=== PATIENT | female | born 1995 | race American Indian/Alaskan Native ===

== ENCOUNTER 2018-12-25 22:51 | Emergency (ER) | payer OTHER ==
[~2018-12-25] VITALS: Ht 172.7 cm; Wt 68.0 kg
[2018-12-26 00:06] LABS: BASOPHILS ABSOLUTE AUTO 0.06 K/mm3 (0.00-0.23); BASOPHILS PERCENT AUTO 1 % (0-2); EOSINOPHILS ABSOLUTE AUTO 0.04 K/mm3 (0.00-0.68); EOSINOPHILS PERCENT AUTO 0 % (0-6); Hematocrit 38.6 % (33.0-51.0); Hemoglobin 12.9 g/dL (11.5-16.0); IMMATURE GRAN ABSOLUTE AUTO 0.02 K/mm3 (0.00-0.10); IMMATURE GRAN PERCENT AUTO 0 % (0-1); LYMPHOCYTES ABSOLUTE AUTO 1.51 K/mm3 (0.84-5.20); LYMPHOCYTES PERCENT AUTO 16 % (21-46); MONOCYTES ABSOLUTE AUTO 0.57 K/mm3 (0.16-1.47); MONOCYTES PERCENT AUTO 6 % (4-13); Mean Corpuscular HGB 31.2 pg (26.0-34.0); Mean Corpuscular HGB Conc 33.4 g/dL (31.5-36.5); Mean Corpuscular Volume 93 fL (80-100); Mean Platelet Volume 9.7 fL (9.1-12.4); NEUTROPHILS ABSOLUTE AUTO 7.33 K/mm3 (1.96-9.15); NEUTROPHILS PERCENT AUTO 77 % (41-73); Platelet Count 234 K/mm3 (150-400); RDW Coefficient Variation 12.6 % (11.7-14.2); RDW Standard Deviation 43.2 fL (35.1-46.3); Red Blood Cell Count 4.14 M/mm3 (3.80-5.20); White Blood Cell Count 9.53 K/mm3 (4.00-11.30)
[2018-12-26 00:24] LABS: Alanine Aminotransfer (ALT/SGP 23 U/L (12-78); Albumin, Blood 4.5 g/dL (3.4-5.0); Albumin/Globulin Ratio 1.3 (0.8-1.8); Alk Phos 66 U/L (50-136); Anion Gap 8 mmol/L (6-16); Aspartate Aminotrans (AST/SGOT 18 U/L (12-37); Bilirubin, Total 0.6 mg/dL (0.1-1.0); Blood Urea Nitrogen 13 mg/dL (8-24); Bun/Creatinine Ratio 14.9 (12.0-20.0); CO2, Blood 24 mmol/L (21-32); Calcium, Blood 9.5 mg/dL (8.5-10.1); Chloride, Blood 105 mmol/L (98-108); Creatinine, Blood 0.87 mg/dL (0.40-1.00); Globulin, Blood 3.5 g/dL (2.2-4.0); Glomerular Filtration Rate >60 (60-); Glucose, Blood 83 mg/dL (70-99); Potassium, Blood 3.8 mmol/L (3.5-5.5); Sodium, Blood 137 mmol/L (136-145)
[2018-12-26 00:26] LABS: Source, Urine Clean Catch
[2018-12-26 00:30] LABS: Bilirubin, Urine Neg (Neg); Blood, Urine Neg (Neg); Glucose Qualitative, Urine Neg (Neg); Ketones, Urine 3+ (Neg); Leukocyte Esterase, Urine Neg (Neg); Nitrite, Urine Neg (Neg); Protein, Urine Neg (Neg); Urobilinogen, Urine NORM (Normal)
[2018-12-26 00:33] LABS: Appearance, Urine Clear (Clear); Color, Urine Yellow (P-Yellow)
[2018-12-26] MEDS ORDERED: ONDA4ODT MM (00:43)
== END 2018-12-26 01:03 | disposition home or self-care (01) ==
LOC: ER 22:51
PROVIDERS: Emergency Medicine
DX: K59.00 Constipation, unspecified (principal); R11.2 Nausea with vomiting, unspecified; F17.200 Nicotine dependence, unspecified, uncomplicated
CPT/HCPCS: 80053; 81003; 81025; 83690; 84703; 85025; 96361; 96374; 99283-25; A9270-GY; J2405; J7030

== ENCOUNTER 2019-12-06 20:19 | Emergency (ER) | payer OTHER ==
[~2019-12-06] VITALS: Ht 170.2 cm; Wt 65.8 kg
[~2019-12-06 20:19] MED LIST: ONDA4ODT MM
[2019-12-06] MEDS ORDERED: TRIAMCINOLONE (20:52)
[2019-12-06] MEDS ORDERED: PRENATAL TABLE1 EAC2 PO (20:52)
[2019-12-06] MEDS ORDERED: Mupirocin22 GM (20:52)
[2019-12-06 21:19] LABS: Source, Urine Clean Catch
[2019-12-06 21:27] LABS: Bilirubin, Urine Neg (Neg); Blood, Urine 5+ (Neg); Glucose Qualitative, Urine Neg (Neg); Ketones, Urine Neg (Neg); Leukocyte Esterase, Urine 2+ (Neg); Nitrite, Urine Neg (Neg); Protein, Urine Neg (Neg); Specific Gravity, Urine 1.005 (1.003-1.022); Urobilinogen, Urine NORM (Normal)
[2019-12-06 21:33] LABS: Appearance, Urine Clear (Clear); Color, Urine Yellow (P-Yellow)
[2019-12-06 21:36] LABS: Bacteria Few /hpf; Squamous Epithelial Cells Few /hpf (Few); White Blood Cells, Urine 50-100 /hpf (0-5)
== END 2019-12-06 23:01 | disposition home or self-care (01) ==
LOC: ER 20:19
PROVIDERS: Student in an Organized Health Care Education/Training Program
DX: O20.0 Threatened abortion (principal); Z88.6 Allergy status to analgesic agent; Z88.5 Allergy status to narcotic agent; Z3A.01 Less than 8 weeks gestation of pregnancy
CPT/HCPCS: 36415; 76801; 76817; 81001; 81025; 84702; 86900; 86901; 87086; 99284-25

== ENCOUNTER 2020-07-16 07:34 | Emergency (ER) | payer OTHER ==
[~2020-07-16] VITALS: Ht 172.7 cm; Wt 65.8 kg
[~2020-07-16 07:34] MED LIST changes: +Mupirocin22 GM; +PRENATAL TABLE1 EAC2 PO; +TRIAMCINOLONE
[2020-07-16 07:57] LABS: Source, Urine Clean Catch
[2020-07-16 08:01] LABS: Bilirubin, Urine Neg (Neg); Blood, Urine 1+ (Neg); Glucose Qualitative, Urine Neg (Neg); Ketones, Urine Neg (Neg); Leukocyte Esterase, Urine 1+ (Neg); Nitrite, Urine Neg (Neg); Protein, Urine Neg (Neg); Specific Gravity, Urine 1.015 (1.003-1.022); Urobilinogen, Urine NORM (Normal)
[2020-07-16 08:06] LABS: Appearance, Urine Cloudy (Clear); Color, Urine Yellow (P-Yellow)
[2020-07-16 08:09] LABS: Red Blood Cells, Urine 0-2 /hpf (0-2)
[2020-07-16 08:10] LABS: Squamous Epithelial Cells Mod /hpf (Few)
[2020-07-16 08:11] LABS: Amorphous Heavy (0-Heavy); Bacteria Few /hpf
[2020-07-16 08:27] LABS: BASOPHILS ABSOLUTE AUTO 0.04 K/mm3 (0.00-0.23); BASOPHILS PERCENT AUTO 0 % (0-2); EOSINOPHILS PERCENT AUTO 1 % (0-6); Hemoglobin 12.7 g/dL (11.5-16.0); IMMATURE GRAN ABSOLUTE AUTO 0.02 K/mm3 (0.00-0.10); IMMATURE GRAN PERCENT AUTO 0 % (0-1); LYMPHOCYTES ABSOLUTE AUTO 1.25 K/mm3 (0.84-5.20); LYMPHOCYTES PERCENT AUTO 12 % (21-46); MONOCYTES ABSOLUTE AUTO 0.49 K/mm3 (0.16-1.47); MONOCYTES PERCENT AUTO 5 % (4-13); Mean Corpuscular HGB 30.8 pg (26.0-34.0); Mean Corpuscular HGB Conc 33.4 g/dL (31.5-36.5); Mean Corpuscular Volume 92 fL (80-100); Mean Platelet Volume 9.6 fL (9.1-12.4); NEUTROPHILS ABSOLUTE AUTO 8.34 K/mm3 (1.96-9.15); NEUTROPHILS PERCENT AUTO 81 % (41-73); Platelet Count 200 K/mm3 (150-400); RDW Coefficient Variation 12.6 % (11.7-14.2); RDW Standard Deviation 42.2 fL (35.1-46.3); Red Blood Cell Count 4.12 M/mm3 (3.80-5.20); White Blood Cell Count 10.24 K/mm3 (4.00-11.30)
[2020-07-16 08:46] LABS: Alanine Aminotransfer (ALT/SGP 18 U/L (12-78); Albumin, Blood 3.9 g/dL (3.4-5.0); Albumin/Globulin Ratio 1.1 (0.8-1.8); Alk Phos 50 U/L (50-136); Anion Gap 6 mmol/L (6-16); Aspartate Aminotrans (AST/SGOT 9 U/L (12-37); Bilirubin, Total 0.6 mg/dL (0.1-1.0); Blood Urea Nitrogen 8 mg/dL (8-24); Bun/Creatinine Ratio 13.5 (12.0-20.0); CO2, Blood 27 mmol/L (21-32); Calcium, Blood 8.9 mg/dL (8.5-10.1); Chloride, Blood 105 mmol/L (98-108); Creatinine, Blood 0.59 mg/dL (0.40-1.00); Globulin, Blood 3.5 g/dL (2.2-4.0); Glomerular Filtration Rate >60 (60-); Glucose, Blood 87 mg/dL (70-99); Potassium, Blood 3.4 mmol/L (3.5-5.5); Sodium, Blood 138 mmol/L (136-145); Total Protein, Blood 7.4 g/dL (6.4-8.2)
[2020-07-16] MEDS ORDERED: PROM25 PO (10:26)
[2020-07-16] MEDS ORDERED: POTA10T PO (10:26)
== END 2020-07-16 10:43 | disposition home or self-care (01) ==
LOC: ER 07:34
PROVIDERS: Emergency Medicine
DX: O21.0 Mild hyperemesis gravidarum (principal); Z3A.11 11 weeks gestation of pregnancy
CPT/HCPCS: 76801; 80053; 81001; 84702; 85025; 87086; 96374; 99284-25; J2550; J7030

== ENCOUNTER 2020-09-03 11:34 | Emergency (ER) | payer OTHER ==
[~2020-09-03] VITALS: Ht 172.7 cm; Wt 68.0 kg
[~2020-09-03 11:34] MED LIST changes: +POTA10T PO; +PROM25 PO
[2020-09-03 12:15] LABS: BASOPHILS ABSOLUTE AUTO 0.04 K/mm3 (0.00-0.23); BASOPHILS PERCENT AUTO 0 % (0-2); EOSINOPHILS ABSOLUTE AUTO 0.13 K/mm3 (0.00-0.68); EOSINOPHILS PERCENT AUTO 1 % (0-6); Hematocrit 38.8 % (33.0-51.0); Hemoglobin 13.3 g/dL (11.5-16.0); IMMATURE GRAN ABSOLUTE AUTO 0.05 K/mm3 (0.00-0.10); IMMATURE GRAN PERCENT AUTO 1 % (0-1); LYMPHOCYTES ABSOLUTE AUTO 1.26 K/mm3 (0.84-5.20); LYMPHOCYTES PERCENT AUTO 11 % (21-46); MONOCYTES ABSOLUTE AUTO 0.57 K/mm3 (0.16-1.47); MONOCYTES PERCENT AUTO 5 % (4-13); Mean Corpuscular HGB 31.5 pg (26.0-34.0); Mean Corpuscular HGB Conc 34.3 g/dL (31.5-36.5); Mean Corpuscular Volume 92 fL (80-100); Mean Platelet Volume 9.8 fL (9.1-12.4); NEUTROPHILS ABSOLUTE AUTO 9.01 K/mm3 (1.96-9.15); NEUTROPHILS PERCENT AUTO 81 % (41-73); Platelet Count 230 K/mm3 (150-400); RDW Coefficient Variation 13.2 % (11.7-14.2); RDW Standard Deviation 44.2 fL (35.1-46.3); Red Blood Cell Count 4.22 M/mm3 (3.80-5.20); White Blood Cell Count 11.06 K/mm3 (4.00-11.30)
[2020-09-03 12:48] LABS: Alanine Aminotransfer (ALT/SGP 20 U/L (12-78); Albumin, Blood 3.6 g/dL (3.4-5.0); Albumin/Globulin Ratio 0.9 (0.8-1.8); Alk Phos 58 U/L (50-136); Anion Gap 7 mmol/L (6-16); Aspartate Aminotrans (AST/SGOT 20 U/L (12-37); Bilirubin, Total 0.5 mg/dL (0.1-1.0); Blood Urea Nitrogen 7 mg/dL (8-24); Bun/Creatinine Ratio 12.5 (12.0-20.0); CO2, Blood 26 mmol/L (21-32); Chloride, Blood 105 mmol/L (98-108); Creatinine, Blood 0.56 mg/dL (0.40-1.00); Globulin, Blood 3.9 g/dL (2.2-4.0); Glomerular Filtration Rate >60 (60-); Glucose, Blood 78 mg/dL (70-99); Potassium, Blood 3.7 mmol/L (3.5-5.5); Sodium, Blood 138 mmol/L (136-145); Total Protein, Blood 7.5 g/dL (6.4-8.2)
[2020-09-03 12:51] LABS: Beta HCG, Quantitative, Serum 78107 mIU/mL (0-3)
[2020-09-03 13:15] LABS: Source, Urine Clean Catch
[2020-09-03 13:19] LABS: Appearance, Urine Clear (Clear); Bilirubin, Urine Neg (Neg); Blood, Urine 1+ (Neg); Color, Urine Amber (P-Yellow); Glucose Qualitative, Urine Neg (Neg); Ketones, Urine 4+ (Neg); Leukocyte Esterase, Urine Neg (Neg); Nitrite, Urine Neg (Neg); Protein, Urine Neg (Neg); Specific Gravity, Urine 1.025 (1.003-1.022); Urobilinogen, Urine NORM (Normal)
[2020-09-03 13:30] LABS: Bacteria Mod /hpf; Mucus Mod (0-Heavy); Red Blood Cells, Urine 0-2 /hpf (0-2); Squamous Epithelial Cells Mod /hpf (Few)
[2020-09-03] MEDS ORDERED: DOXYLAMINE-PYR1 EAC1 PO (14:33)
== END 2020-09-03 15:01 | disposition home or self-care (01) ==
LOC: ER 11:34
PROVIDERS: Emergency Medicine
DX: O21.9 Vomiting of pregnancy, unspecified (principal); Z3A.18 18 weeks gestation of pregnancy; Z88.5 Allergy status to narcotic agent; Z88.8 Allergy status to other drugs, medicaments and biological substances
CPT/HCPCS: 36415; 80053; 81001; 84702; 85025; 87086; 96361; 96374; 99284-25; J2405; J7120

== ENCOUNTER 2021-01-11 23:48 | Emergency (ER) | payer OTHER ==
[~2021-01-11] VITALS: Ht 172.7 cm; Wt 83.9 kg
[~2021-01-11 23:48] MED LIST changes: +DOXYLAMINE-PYR1 EAC1 PO
== END 2021-01-12 01:45 | disposition left against medical advice (07) ==
LOC: ER 23:48
DX: Z53.21 Procedure and treatment not carried out due to patient leaving prior to being seen by health care provider (principal)

== ENCOUNTER 2024-03-02 14:07 | Emergency (ER) | payer BC, OTHER ==
[~2024-03-02] VITALS: Ht 175.3 cm; Wt 65.8 kg
[2024-03-02 14:25] VITALS: BP 124/80
== END 2024-03-02 15:04 | disposition home or self-care (01) ==
LOC: ER 14:07
DX: R07.89 Other chest pain (principal); Z88.5 Allergy status to narcotic agent; Z88.8 Allergy status to other drugs, medicaments and biological substances
CPT/HCPCS: 99283